=== PATIENT | male | born 1985 | race Caucasian/White ===

== ENCOUNTER 2017-02-20 06:14 | Emergency (ER) | payer BC ==
[~2017-02-20] VITALS: Ht 167.6 cm; Wt 74.8 kg
[2017-02-20] MEDS ORDERED: OXYMETAZOLINE HCL NASAL SPRAY 30 ML BOTTLE NS ONE ×2 (06:23→06:30)
--- NOTE | 2017-02-20 06:25 | NUR ---
PT RECEIVED FROM HOME WITH FAMILY C/O "MY NOSE STARTED TO BLEED AT 0400 AND THEN SHOWERED AND SINCE IT HAS NOT STOPPED. I HAVE A HX OF DEVIATED SEPTUM" NO PAIN STATED. NO SOB WITH ADEQUATE CHEST RISE AND FALL. A/OX4 VSS NAD
--- NOTE | 2017-02-20 06:30 | NUR ---
ER AT BEDSIDE FOR EVAL
[2017-02-20] MEDS ORDERED: ONDANSETRON 4 MG TAB.RAPDIS ONE (07:18)
[2017-02-20] MEDS ORDERED: ONDANSETRON 4 MG TAB.RAPDIS SL ONE (07:30)
--- NOTE | 2017-02-20 07:47 | NUR ---
PATIENT ON BED, VSS. AWAKE.
[2017-02-20] MEDS ORDERED: ONDANSETRON HCL/PF 4 MG/2 ML VIAL IVP ONE (08:00)
[2017-02-20] MEDS ORDERED: IV NS 0.9% 1,000 ML BAG IV ONE (08:00)
[2017-02-20] MEDS ORDERED: ONDANSETRON HCL/PF 4 MG/2 ML VIAL ONE (08:08)
[2017-02-20 08:45] VITALS: BP 132/72
--- NOTE | 2017-02-20 08:49 | NUR ---
Patient discharged to home in stable condition. Written and verbal after care instructions given. Patient verbalizes understanding of instruction.
== END 2017-02-20 08:50 | disposition home or self-care (01) ==
LOC: ER 06:14
DX: R04.0 Epistaxis (principal); R11.2 Nausea with vomiting, unspecified; Z88.1 Allergy status to other antibiotic agents
CPT/HCPCS: 30901; 96361; 96374; 99284; J2405; Q0162

== ENCOUNTER 2017-02-20 10:01 | Emergency (ER) | payer BC ==
[~2017-02-20] VITALS: Ht 165.1 cm; Wt 75.7 kg
--- NOTE | 2017-02-20 10:20 | NUR ---
PATIENT TO ED DT NOSEBLEED, SEEN HERE EARLIER FOR SAME +PACKING. PER PT BLEEDING WONT STOP EVEN WITH PACKING. VSS
--- NOTE | 2017-02-20 10:21 | NUR ---
DR ROBLES PAGED
[2017-02-20 11:14] VITALS: BP 110/70
--- NOTE | 2017-02-20 11:15 | NUR ---
Patient discharged to home in stable condition. Written and verbal after care instructions given. Patient verbalizes understanding of instruction.
== END 2017-02-20 11:15 | disposition home or self-care (01) ==
LOC: ER 10:02
DX: R04.0 Epistaxis (principal); Z88.1 Allergy status to other antibiotic agents
CPT/HCPCS: 99282; A4606; Z7610